=== PATIENT | male | born 1965 | race Caucasian/White ===

== ENCOUNTER 2020-04-22 23:06 | Observation (INO) | payer MEDICARE, OTHER ==
[~2020-04-22] VITALS: Ht 177.8 cm; Wt 85.0 kg
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
[2020-04-23] MEDS ORDERED: LACTATED RINGERS 1,000 ML IV ONE (00:15)
[2020-04-23 00:20] LABS: BASOPHILS % (AUTO) 1 % (0-10); EOSINOPHILS # (AUTO) 0.1 10^3/uL (0.0-0.3); EOSINOPHILS % (AUTO) 2 % (0-10); HEMATOCRIT 46 % (40-54); HEMOGLOBIN 15.3 g/dL (13.3-17.7); LYMPHOCYTES # (AUTO) 1.6 10^3/uL (1.0-4.0); LYMPHOCYTES % (AUTO) 31 % (12-44); MEAN CORPUSCULAR HEMOGLOBIN 30 pg (25-34); MEAN CORPUSCULAR HGB CONC 33 g/dL (32-36); MEAN CORPUSCULAR VOLUME 90 fL (80-99); MEAN PLATELET VOLUME 9.6 fL (9.0-12.2); MONOCYTES # (AUTO) 0.4 10^3/uL (0.0-1.0); MONOCYTES % (AUTO) 8 % (0-12); NEUTROPHILS # (AUTO) 2.9 10^3/uL (1.8-7.8); NEUTROPHILS % (AUTO) 58 % (42-75); PLATELET COUNT 209 10^3/uL (130-400); WHITE BLOOD COUNT 5.1 10^3/uL (4.3-11.0)
[2020-04-23 00:33] LABS: ALBUMIN 4.8 GM/DL (3.2-4.5); CHLORIDE 105 MMOL/L (98-107); SODIUM 139 MMOL/L (135-145)
[2020-04-23 00:34] LABS: CALCIUM 9.6 MG/DL (8.5-10.1)
[2020-04-23 00:35] LABS: GLUCOSE 97 MG/DL (70-105)
[2020-04-23 00:36] LABS: CARBON DIOXIDE 20 MMOL/L (21-32)
[2020-04-23 00:37] LABS: BILIRUBIN,TOTAL 0.3 MG/DL (0.1-1.0)
[2020-04-23 00:39] LABS: ALKALINE PHOSPHATASE 47 U/L (40-136); CREATININE SERUM 0.94 MG/DL (0.60-1.30); GFR ESTIMATED > 60
[2020-04-23 00:41] LABS: ACETAMINOPHEN < 10 UG/ML (10-30); BUN/CREATININE RATIO 17
[2020-04-23 00:42] LABS: ALANINE AMINOTRANSFERASE 14 U/L (0-55); SALICYLATE < 5.0 MG/DL (5.0-20.0)
[2020-04-23 00:49] LABS: VALPROIC ACID 41.1 UG/ML (50.0-100.0)
[2020-04-23 00:59] LABS: BILIRUBIN,URINE NEGATIVE (NEGATIVE); CLARITY,URINE CLEAR; COLOR,URINE YELLOW; GLUCOSE, URINE (UA) NEGATIVE (NEGATIVE); KETONES,URINE NEGATIVE (NEGATIVE); LEUKOCYTE ESTERASE ,URINE NEGATIVE (NEGATIVE); NITRITE,URINE NEGATIVE (NEGATIVE); PROTEIN,URINE NEGATIVE (NEGATIVE)
[2020-04-23 01:02] LABS: TSH (THYROID ANALYZER) 2.49 UIU/ML (0.35-4.94)
[2020-04-23 01:08] LABS: BACTERIA,URINE NEGATIVE /HPF; SQUAMOUS EPITHELIAL CELL,UR RARE /HPF
[2020-04-23 01:14] LABS: AMPHETAMINE SCREEN, URINE NEGATIVE (NEGATIVE); BARBITURATE SCREEN URINE NEGATIVE (NEGATIVE); BENZODIAZEPINES SCREEN URINE NEGATIVE (NEGATIVE); CANNABINOID SCREEN, URINE NEGATIVE (NEGATIVE); COCAINE SCREEN URINE NEGATIVE (NEGATIVE); METHADONE STAT NEGATIVE (NEGATIVE); METHAMPHETAMINE SCREEN URINE S NEGATIVE (NEGATIVE); OPIATE SCREEN URINE NEGATIVE (NEGATIVE); OXYCODONE STAT NEGATIVE (NEGATIVE); PROPOXYPHENE STAT NEGATIVE (NEGATIVE); TRICYCLIC ANTIDEPRESSANTS SCRE NEGATIVE (NEGATIVE)
--- NOTE | 2020-04-23 02:07 | NUR ---
PT LETA ([phone]) NOTIFIED OF PT ADMISSION TO [facility] AND PASSWORD "RIYA" ESTABLISHED. DISCUSSED WITH BEST TIME TO CALL IN MORNING WOULD BE AFTER 0900.
[2020-04-23] MEDS ORDERED: D5 1/2 NS W/KCL 20 MEQ/L 1,000 ML IV ONE (02:12)
[2020-04-23] MEDS ORDERED: SENNA W/DOCUSATE (SENOKOT S) TABLET PO PRN (02:30)
[2020-04-23] MEDS ORDERED: 1/2 NS IV SOLUTION 1,000 ML IV PRN (02:30)
[2020-04-23] MEDS ORDERED: D5 1/2 NS 1000 ML IV SOLUTION 1,000 ML IV PRN (02:30)
[2020-04-23] MEDS ORDERED: LORazepam INJ 2 MG/ML (ATIVAN) VIAL IM/IV PRN (02:30)
[2020-04-23] MEDS ORDERED: LORazepam INJ 2 MG/ML (ATIVAN) VIAL IV PRN (02:30)
[2020-04-23] MEDS ORDERED: ONDANSETRON 4 MG (ZOFRAN) ORAL DISSOLVE TAB SL PRN (02:30)
[2020-04-23] MEDS ORDERED: LORazepam 1 MG (ATIVAN) TAB PO PRN (02:30)
[2020-04-23] MEDS ORDERED: ANTACID SUSP 30 ML UDC (MYLANTA) PO PRN (02:30)
[2020-04-23] MEDS ORDERED: ONDANSETRON 4 MG/2 ML (SDV) Z0FRAN IV PRN (02:30)
[2020-04-23] MEDS: D5 1/2 NS W/KCL 20 MEQ/L 1,000 ML IV SCH ×4 (02:55→22:44)
[2020-04-23 04:04] LABS: BASOPHILS % (AUTO) 1 % (0-10); EOSINOPHILS # (AUTO) 0.1 10^3/uL (0.0-0.3); EOSINOPHILS % (AUTO) 3 % (0-10); HEMATOCRIT 41 % (40-54); HEMOGLOBIN 13.5 g/dL (13.3-17.7); LYMPHOCYTES # (AUTO) 1.6 10^3/uL (1.0-4.0); LYMPHOCYTES % (AUTO) 39 % (12-44); MEAN CORPUSCULAR HEMOGLOBIN 30 pg (25-34); MEAN CORPUSCULAR HGB CONC 33 g/dL (32-36); MEAN CORPUSCULAR VOLUME 90 fL (80-99); MEAN PLATELET VOLUME 9.3 fL (9.0-12.2); MONOCYTES # (AUTO) 0.3 10^3/uL (0.0-1.0); MONOCYTES % (AUTO) 7 % (0-12); NEUTROPHILS # (AUTO) 2.1 10^3/uL (1.8-7.8); NEUTROPHILS % (AUTO) 49 % (42-75); PLATELET COUNT 187 10^3/uL (130-400); WHITE BLOOD COUNT 4.2 10^3/uL (4.3-11.0)
[2020-04-23 04:15] LABS: ALBUMIN 3.8 GM/DL (3.2-4.5); CHLORIDE 107 MMOL/L (98-107); POTASSIUM 4.3 MMOL/L (3.6-5.0); SODIUM 140 MMOL/L (135-145)
[2020-04-23 04:16] LABS: CALCIUM 8.6 MG/DL (8.5-10.1)
[2020-04-23 04:17] LABS: GLUCOSE 101 MG/DL (70-105); TOTAL PROTEIN 6.1 GM/DL (6.4-8.2)
[2020-04-23 04:18] LABS: CARBON DIOXIDE 23 MMOL/L (21-32)
[2020-04-23 04:19] LABS: BILIRUBIN,TOTAL 0.2 MG/DL (0.1-1.0)
[2020-04-23 04:21] LABS: ALKALINE PHOSPHATASE 38 U/L (40-136); GFR ESTIMATED > 60
[2020-04-23 04:22] LABS: BUN/CREATININE RATIO 16
[2020-04-23 04:24] LABS: ALANINE AMINOTRANSFERASE 11 U/L (0-55)
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
[2020-04-23 07:26] VITALS: BP 123/76
[2020-04-23] MEDS: ENOXAPARIN 40 MG/0.4 ML (LOVENOX) SYR SQ SCH (09:00)
[2020-04-23] MEDS: THIAMINE INJECTION 100 MG, FOLIC ACID INJECTION 1 MG, MAGNESIUM SULFATE 2 GM, VITAMIN M... IV SCH ×5 (09:01)
[2020-04-23 12:00] VITALS: BP 121/69
--- NOTE | 2020-04-23 12:00 | NUR ---
phoned report called to deb andrew at this time.
--- NOTE | 2020-04-23 13:10 | NUR ---
patient and telesitter taken via wheelchair on room air to 406. this rn informed floor staff and deb andrew that patient arrived in room with telesitter. patient in bed with no complaints. iv fluids hooked up to pump by this rn.
--- NOTE | 2020-04-23 13:15 | NUR ---
Patient arrived to room 406 via wheelchair. Patient alert and oriented on room air. Voices no complaint or suicidal ideation at this time. Report previously received from Izabel MOREIRA.
[2020-04-23 13:20] VITALS: BP 134/83
--- NOTE | 2020-04-23 14:40 | NUR ---
Patients called at this time requesting an update on her but provided wrong password. Patient asleep at this time. Informed that once patient wakes up I will discuss updating her with his care and progress but can not provide any information until approval is given by the patient.
[2020-04-23 15:46] VITALS: BP 135/70
--- NOTE | 2020-04-23 15:55 | NUR ---
Patients wifes phone number not available in chart. Patient states he does not have number memorized. Will wait for to call back to update on patient information per patient approval
--- NOTE | 2020-04-23 16:10 | NUR ---
After reading previous notes was able to find wifes phone number [phone]. Contacted at this time and updated her on patient status. Allowed patient to speak with at this time as well while this RN stood at bedside.
[2020-04-23] MEDS ORDERED: lisINopril 5 MG (PRINIVIL) TABLET PO ONE (18:30)
[2020-04-23] MEDS ORDERED: DIVALPROEX 500 MG DELAYED RELEASE (DEPAKOTE) TAB PO SCH ×2 (18:30→21:27)
[2020-04-23] MEDS ORDERED: LITHIUM CARBONATE 300 MG TABLET PO ONE (18:30)
[2020-04-23 19:30] VITALS: BP 132/75
[2020-04-23] MEDS ORDERED: GABAPENTIN 600 MG (NEURONTIN) TAB PO SCH (21:00)
[2020-04-23] MEDS ORDERED: BACLOFEN 10 MG (LIORESAL) TAB PO SCH (21:00)
[2020-04-23] MEDS ORDERED: traZODone 100 MG (DESYREL) TAB PO SCH ×2 (21:00)
[2020-04-23] MEDS: GABAPENTIN 600 MG (NEURONTIN) TAB PO SCH (21:11)
[2020-04-23] MEDS: BACLOFEN 10 MG (LIORESAL) TAB PO SCH (21:11)
[2020-04-23] MEDS ORDERED: DIVALPROEX EXT RELEASE 500 MG (DEPAKOTE ER) TAB PO ONE (21:15)
[2020-04-24 00:37] VITALS: BP 145/75
[2020-04-24 04:00] VITALS: BP 113/66
--- NOTE | 2020-04-24 06:48 | NUR ---
Patient asked if IV fluids could be "slowed down" as he was having a hard time sleeping because he was urinating frequently. Dr Granados notified of patient request and gave order to D/C IV fluids.
[2020-04-24 08:00] VITALS: BP 119/72
[2020-04-24] MEDS: GABAPENTIN 600 MG (NEURONTIN) TAB PO SCH (08:38)
[2020-04-24] MEDS: BACLOFEN 10 MG (LIORESAL) TAB PO SCH (08:38)
[2020-04-24] MEDS: ENOXAPARIN 40 MG/0.4 ML (LOVENOX) SYR SQ SCH (08:39)
[2020-04-24] MEDS: THIAMINE INJECTION 100 MG, FOLIC ACID INJECTION 1 MG, MAGNESIUM SULFATE 2 GM, VITAMIN M... IV SCH ×5 (08:45)
[2020-04-24] MEDS ORDERED: DIVALPROEX 500 MG DELAYED RELEASE (DEPAKOTE) TAB PO SCH (09:00)
[2020-04-24] MEDS ORDERED: lisINopril 5 MG (PRINIVIL) TABLET PO SCH (09:00)
[2020-04-24] MEDS ORDERED: FLUoxetine HCL 20 MG (PROzac) CAP PO SCH ×2 (09:00)
[2020-04-24] MEDS ORDERED: ARIP15TA9 PO (09:42)
[2020-04-24] MEDS ORDERED: GBPN600T PO (09:42)
[2020-04-24] MEDS ORDERED: BUSP15TA60 PO (09:42)
[2020-04-24] MEDS ORDERED: DICL75TA2 PO (09:42)
[2020-04-24] MEDS ORDERED: LTH450TCR PO (09:42)
[2020-04-24] MEDS ORDERED: FLUO20CA46 PO (09:42)
[2020-04-24] MEDS ORDERED: LISI-552 PO (09:42)
[2020-04-24] MEDS ORDERED: TRAZ-227 PO (09:42)
[2020-04-24] MEDS ORDERED: DIVA-76 PO ×2 (09:42)
[2020-04-24] MEDS ORDERED: PRAZ5CAP2 PO (09:42)
[2020-04-24] MEDS ORDERED: BACL10TA PO (09:42)
[2020-04-24] MEDS ORDERED: ACET325T38 PO (09:45)
--- NOTE | 2020-04-24 10:06 | NUR ---
I SPOKE WITH THE PATIENT, CALLED DAISY NELSON, WENT THROUGH THE EXTERNAL MED HISTORY AND HIS MED LIST BROUGHT FROM HOME TO COMPLETE THIS MED REC. PT STATES THAT HE'S SUPPOSED TO BE TAKING LISINOPRIL 20MG DAILY BUT HASN'T BEEN ABLE TO GET THEM FILLED IN A WHILE AND HAS BEEN OUT AND NOT TAKING. BUSPIRONE 15MG HASN'T BEEN FILLED SINCE 01/07/20 BUT PT SAYS HE STILL HAS SOME FROM PREVIOUS FILLS. PRAZOSIN LAST FILLED 03/06/20 #30/30DS
--- NOTE | 2020-04-24 10:32 | NUR ---
CM/SS: Returned telephone call to spouse Lakshmi [phone] - she left a message on this workers voice mail - she is is able to give this worker some information about pt. She is open at this time to take pt to [place] to see his Psychiatrist and they have same day appointments on a walk in basis. This worker verifies the name of the mental health center in [place], [place]. Pt goes to [facility] [phone]. She also asked about other mental health services in the [facility]. This worker will provide information to pt on other services in the area.
--- NOTE | 2020-04-24 10:46 | NUR ---
CM/SS: Visited with pt as per plan for discharge - pt would like to go see his psychiatrist in [place], [place] as they have a walk in clinic and he can see them today. Plan: Pt will see his psychiatrist today in [place] at the [facility] - phone [phone] -urbana. Summary: Pt feels ok that he can see his psychiatrist in [place], [place] today. Pt asked about other mental health services in the area. This worker will provide pt with information on area mental health services. Pt is encouraged to take his medications as it did help him feel better. He acknowledges that stopping his medication was not a good idea. He notes that he has struggled with depression the last few weeks. Pt gives some life review and feels as if talking with psychiatric will be most helpful. He denies being suicidal at this time. Pt also reports that drinking was not a good plan. He is open to getting help at this time. This worker provided pt with information from various mental health centers in the area.
--- NOTE | 2020-04-24 10:52 | Discharge Summary ---
Discharge Summary Hospital Course Was the Problem List Reviewed?: Yes Problems/Dx: (1) Depression with suicidal ideation Status: Acute (2) Alcohol intoxication Status: Resolved Hospital Course Date of Admission: Apr 23, 2020 at 01:37 Admission Diagnosis: Depression with suicidal ideation Family Physician/Provider: Date of Discharge: 04/24/20 Discharge Diagnosis: Depression with suicidal ideation Hospital Course: Juan Manuel Beckwith is a 55-year-old male with depression who presented with suicidal ideation. He was also intoxicated from alcohol use. He reports that he was having suicidal ideations upon arrival but these resolved. He reports that he has been nonadherent with his psychiatric medications. He follows with a psychiatrist in [place], [place]. He would like to follow-up as an outpatient and plans to go in with his today to be seen. He was given information regarding [facility] services. Labs and Pending Lab Test: Home Meds Active Reported Tylenol (Acetaminophen) 325 Mg Tablet 650 Mg PO Q8H PRN TAKES 2 (325MG) TABLETS Aripiprazole 15 Mg Tablet 15 Mg PO 1900 [place] Carbonate ER ([place] Carbonate) 450 Mg Tab 450 Mg PO 1900 Prazosin HCl 5 Mg Capsule 5 Mg PO HS Trazodone HCl 100 Mg Tablet 200 Mg PO HS PRN TAKES 2 (100MG) TABLETS Buspirone HCl 15 Mg Tablet 15 Mg PO TID LAST FILLED 01/07/2020 #90 Baclofen 10 Mg Tablet 10 Mg PO TID Divalproex Sodium 500 Mg Tablet.dr 1,000 Mg PO HS TAKES 2 (500MG) TABLETS Divalproex Sodium 500 Mg Tablet.dr 500 Mg PO DAILY Gabapentin 600 Mg Tablet 600 Mg PO TID Fluoxetine HCl 20 Mg Capsule 60 Mg PO DAILY TAKES 3 (20MG) TABLETS Diclofenac Sodium 75 Mg Tablet.dr 75 Mg PO BID Assessment/Pt Instructions Take medications as prescribed. Follow up with your psychiatrist. You are being given info regarding [facility] outpatient services. Discharge Planning: <30 minutes discharge planning Discharge Instructions Discharge Diet: No Restrictions Activity as Tolerated: Yes Discharge Physical Examination Vital Signs Vital Signs Date Time Temp Pulse Resp B/P (MAP) Pulse Ox O2 Delivery O2 Flow Rate FiO2 04/24/20 08:00 36.1 59 16 119/72 (88) 97 Room Air General Appearance: No Apparent Distress, WD/WN HEENT: PERRL/EOMI, Pharynx Normal Respiratory: Lungs Clear, Normal Breath Sounds, No Respiratory Distress Cardiovascular: Regular Rate, Rhythm, No Edema, No Murmur Gastrointestinal: Normal Bowel Sounds, Non Tender, Soft Extremity: Normal Inspection, Non Tender, No Pedal Edema Skin: Normal Color, Warm/Dry Neurologic/Psychiatric: Alert, Oriented x3, No Motor/Sensory Deficits, Normal Mood/Affect Allergies: Coded Allergies: No Known Drug Allergies (Unverified , 04/23/20) Discharge Summary Date of Admission Apr 23, 2020 at 01:37 Date of Discharge Discharge Date: Apr 24, 2020 Discharge Time: 09:45 Admission Diagnosis Depression with suicidal ideation Discharge Diagnosis (1) Depression with suicidal ideation Status: Acute (2) Alcohol intoxication Status: Resolved GABO HEALY MD Apr 24, 2020 10:52
[2020-04-24 12:00] VITALS: BP 105/60
[2020-04-24 12:50] VITALS: BP 105/60
--- NOTE | 2020-04-24 13:00 | NUR ---
PATSY LAUREN demonstrates understanding of discharge instructions and accurately returns instructions upon questioning. Copy of Post-Discharge Instructions and Medication Discharge Instructions given to patient. PATSY LAUREN is able to manage continuing needs after discharge. Patients belongings returned to patient. Skin dry and intact; no breakdown noted. Patient discharged from [facility] on 04/24/20 at 1300. PATSY LAUREN left floor via wheelchair, accompanied by staff.
--- NOTE | 2020-04-24 14:51 | NUR ---
"RD ASSESSMENT PMHx: HTN; suicide attempts PT INTERACTION: Pt was awake and pleasant during nutrition consult for MST score. Pt states current appetite is alright. Note avg PO intake 67% x1d, per chart review. Pt states following a regular diet at home, and has no issues with chewing/swallowing food. Pt states no issues with nausea, vomiting, constipation, or diarrhea. Note last BM was 04/23, and pt currently on bowel regimen of senna PRN, per chart review. Pt states no recent wt changes. Note unable to determine recent wt hx, per chart review. Upon visual assessment, pt appears to adequately nourished with no visible signs of muscle/fat wasting, and a BMI of 26.9 (Overweight BMI for age). Given PO intake, wt hx, and visual assessment, pt does not meet criteria for malnutrition per ASPEN guidelines. Est. kcal needs: 3660-7675 kcal | 20-25 kcal/kg Est. Pro needs: 68-85 g Pro | 0.8-1.0 g Pro/kg PES STATEMENT: Inadequate oral intake (NI-2.1) related to loss of appetite, as evidenced by pt interview, and avg PO intake 66% x1d. INTERVENTION: Continue with current diet order of Regular diet. Pt may benefit from nutrition supplementation if PO intake declines. Will continue to follow and reassess as pt needs, intake, and status change. Yovani JENKINS, MS RD LD [phone] cell"
== END 2020-04-24 10:44 | disposition home or self-care (01) ==
LOC: ER 23:11 → CSD 23:12 → UNDOADMOB 04-23 01:37 → 4TH 04-23 13:00 → CSD 04-23 13:00 → UNDODISOB 04-24 13:00
PROVIDERS: ADMIT Family Medicine; ATTEND Internal Medicine
DX: F32.9 Major depressive disorder, single episode, unspecified (principal); R45.851 Suicidal ideations; F10.129 Alcohol abuse with intoxication, unspecified; G89.29 Other chronic pain; F41.9 Anxiety disorder, unspecified; F43.10 Post-traumatic stress disorder, unspecified; Z20.828 Contact with and (suspected) exposure to other viral communicable diseases
CPT/HCPCS: 80053; 80164; 80178; 80306; 81000; 84443; 85025; 93005; 93041; 99284; G0378 ×2; G0480 ×3; U0002; 36415; 80320; 80329; 87635

== ENCOUNTER 2022-05-24 22:46 | Emergency (ER) | payer MEDICARE ==
[~2022-05-24 22:46] MED LIST: ACET325T38 PO; ARIP15TA20 PO; BACL10TA PO; BUSP15TA60 PO; DICL75TA2 PO; DIVA-76 PO; FLUO20CA48 PO; GBPN600T PO; LISI20TA26 PO; LTH450TCR PO; PRAZ5CAP2 PO; TRAZ-227 PO
[2022-05-24] MEDS ORDERED: ASPIRIN 81 MG CHEW (CHILDREN'S ASA) PO ONE (23:00)
[2022-05-24 23:09] LABS: BASOPHILS # (AUTO) 0.1 10^3/uL (0.0-0.1); BASOPHILS % (AUTO) 1 % (0-10); EOSINOPHILS # (AUTO) 0.2 10^3/uL (0.0-0.3); EOSINOPHILS % (AUTO) 2 % (0-10); HEMATOCRIT 40 % (40-54); HEMOGLOBIN 13.4 g/dL (13.3-17.7); LYMPHOCYTES % (AUTO) 30 % (12-44); MEAN CORPUSCULAR HEMOGLOBIN 30 pg (25-34); MEAN CORPUSCULAR HGB CONC 34 g/dL (32-36); MEAN CORPUSCULAR VOLUME 89 fL (80-99); MONOCYTES # (AUTO) 0.6 10^3/uL (0.0-1.0); MONOCYTES % (AUTO) 9 % (0-12); NEUTROPHILS # (AUTO) 3.9 10^3/uL (1.8-7.8); NEUTROPHILS % (AUTO) 58 % (42-75); PLATELET COUNT 186 10^3/uL (130-400); WHITE BLOOD COUNT 6.7 10^3/uL (4.3-11.0)
[2022-05-24] MEDS: NITROGLYCERIN 0.4 MG SL TABS BTL 25'S SL PRN ×2 (23:16→23:26)
[2022-05-24 23:29] LABS: CHLORIDE 105 MMOL/L (98-107); POTASSIUM 4.7 MMOL/L (3.6-5.0); SODIUM 139 MMOL/L (135-145)
[2022-05-24 23:30] LABS: AMYLASE 90 U/L (25-125)
[2022-05-24 23:31] LABS: GLUCOSE 88 MG/DL (70-105); TOTAL PROTEIN 6.5 GM/DL (6.4-8.2)
[2022-05-24 23:32] LABS: CARBON DIOXIDE 24 MMOL/L (21-32)
[2022-05-24 23:33] LABS: BILIRUBIN,TOTAL 0.4 MG/DL (0.1-1.0)
[2022-05-24 23:34] LABS: FIBRIN DEGRADATION PRODUCTS 0.95 UG/ML (0.00-0.49); PROTHROMBIN TIME PATIENT 13.9 SEC (12.2-14.7)
[2022-05-24 23:35] LABS: ALKALINE PHOSPHATASE 40 U/L (40-136); CREATININE SERUM 0.99 MG/DL (0.60-1.30); GFR ESTIMATED 89
[2022-05-24 23:36] LABS: BUN/CREATININE RATIO 26
[2022-05-24 23:38] LABS: ALANINE AMINOTRANSFERASE 19 U/L (0-55); MAGNESIUM 2.2 MG/DL (1.6-2.4)
[2022-05-24 23:39] LABS: CREATINE KINASE 80 U/L (30-200); LIPASE 66 U/L (8-78)
[2022-05-24 23:45] LABS: CREATINE KINASE MB 2.1 NG/ML (<6.6)
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
[2022-05-25] MEDS ORDERED: IOHEXOL 350 MG/ML 100 ML (OMNIPAQUE 350) VIAL IV ONE (00:45)
[2022-05-25] MEDS ORDERED: HOLD METFORMIN - RECEIVED CONTRAST 20 ML VIAL IV SCH (00:45)
[2022-05-25] MEDS ORDERED: NS 100 ML (IVPB) BAG IV ONE (00:45)
[2022-05-25] MEDS ORDERED: METO-352 PO (02:49)
[2022-05-25] MEDS ORDERED: meTOproloL SUCCINATE 50 MG (TOPROL XL) TAB PO SCH (03:00)
[2022-05-25 03:06] VITALS: BP 154/92
--- NOTE | 2022-05-25 06:41 | Diagnostic Imaging Report ---
INDICATION: Chest pain with elevated D-dimer. TECHNIQUE: Contiguous axial images were obtained through the chest during the intravenous administration of contrast. MIP reconstructions were created and evaluated. COMPARISON: None. DISCUSSION: No pulmonary embolus identified. Thoracic aorta is normal in caliber and configuration. Pulmonary arteries are not dilated. Normal heart size. No pleural or pericardial fluid. No consolidation or pulmonary lesion. No pathologic-appearing adenopathy. Pneumobilia is noted of uncertain etiology or clinical significance. The gallbladder is contracted. The upper abdomen is otherwise unremarkable. No acute osseous abnormality identified. IMPRESSION: 1. No pulmonary embolus identified. No other acute abnormality within the chest. 2. Pneumobilia. 3. Agree with preliminary report. Dictated by: Dictated on workstation # [id number]
--- NOTE | 2022-05-25 07:00 | Diagnostic Imaging Report ---
INDICATION: Chest pain. COMPARISON: None. DISCUSSION: Single portable upright view of the chest was obtained. Epidural stimulator lead is noted within the mid thoracic spine. Cervical spine fusion is noted. Normal heart size. No consolidation, pleural fluid, or pneumothorax. No acute osseous abnormality. IMPRESSION: 1. Negative chest. 2. Agree with preliminary emergency department interpretation. Dictated by: Dictated on workstation # [id number]
== END 2022-05-25 03:07 | disposition home or self-care (01) ==
LOC: EDUNIT# 22:46 → ER 22:48
DX: I71.21 Aneurysm of the ascending aorta, without rupture (principal); I10 Essential (primary) hypertension; Z87.891 Personal history of nicotine dependence
CPT/HCPCS: 36415; 71045; 71275; 80053; 82150; 82550; 82553; 83690; 83735; 83874; 83880; 84484; 85025; 85379; 85610; 85730; 93005; 93041

== ENCOUNTER → 2022-06-07 | Outpatient (CLI) | payer MEDICARE ==
[~2022-06-07] MED LIST changes: +METO-352 PO
== END ==
LOC: CARD 08:57
PROVIDERS: ATTEND Internal Medicine Cardiovascular Disease
DX: I08.0 Rheumatic disorders of both mitral and aortic valves (principal); I10 Essential (primary) hypertension; I25.10 Atherosclerotic heart disease of native coronary artery without angina pectoris
CPT/HCPCS: 93306

== ENCOUNTER 2022-08-13 14:23 | Emergency (ER) | payer MEDICARE ==
[~2022-08-13] VITALS: Ht 177 cm; Wt 82.0 kg
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
[2022-08-13] MEDS ORDERED: TETANUS,DIPTH,PERTUSS P/F (BOOSTRIX) 0.5 ML VIAL IM ONE (15:30)
[2022-08-13] MEDS: IBUPROFEN 600 MG (MOTRIN) TAB PO ONE (15:35)
[2022-08-13 15:39] VITALS: BP 135/84
== END 2022-08-13 15:39 | disposition home or self-care (01) ==
LOC: EDUNIT# 14:23 → ER 14:25
DX: S09.90XA Unspecified injury of head, initial encounter (principal); S01.81XA Laceration without foreign body of other part of head, initial encounter; F17.210 Nicotine dependence, cigarettes, uncomplicated; Z23 Encounter for immunization; W01.0XXA Fall on same level from slipping, tripping and stumbling without subsequent striking against object, initial encounter; Y92.59 Other trade areas as the place of occurrence of the external cause
CPT/HCPCS: 90715

== ENCOUNTER 2022-09-24 02:16 | Emergency (ER) | payer MEDICARE ==
[~2022-09-24] VITALS: Ht 177.8 cm; Wt 81.6 kg
[2022-09-24 02:17] VITALS: BP 143/77
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
[2022-09-24 02:45] LABS: BASOPHILS % (AUTO) 1 % (0-10); EOSINOPHILS # (AUTO) 0.1 10^3/uL (0.0-0.3); EOSINOPHILS % (AUTO) 2 % (0-10); HEMATOCRIT 43 % (40-54); HEMOGLOBIN 14.1 g/dL (13.3-17.7); LYMPHOCYTES # (AUTO) 1.6 10^3/uL (1.0-4.0); LYMPHOCYTES % (AUTO) 33 % (12-44); MEAN CORPUSCULAR HEMOGLOBIN 30 pg (25-34); MEAN CORPUSCULAR HGB CONC 33 g/dL (32-36); MEAN CORPUSCULAR VOLUME 93 fL (80-99); MEAN PLATELET VOLUME 9.1 fL (9.0-12.2); MONOCYTES # (AUTO) 0.4 10^3/uL (0.0-1.0); MONOCYTES % (AUTO) 7 % (0-12); NEUTROPHILS # (AUTO) 2.8 10^3/uL (1.8-7.8); NEUTROPHILS % (AUTO) 56 % (42-75); PLATELET COUNT 186 10^3/uL (130-400)
[2022-09-24 02:46] LABS: BILIRUBIN,URINE NEGATIVE (NEGATIVE); CLARITY,URINE CLEAR; COLOR,URINE YELLOW; GLUCOSE, URINE (UA) NEGATIVE (NEGATIVE); KETONES,URINE NEGATIVE (NEGATIVE); LEUKOCYTE ESTERASE ,URINE NEGATIVE (NEGATIVE); NITRITE,URINE NEGATIVE (NEGATIVE); PH,URINE 5.5 (5-9); PROTEIN,URINE NEGATIVE (NEGATIVE)
[2022-09-24 02:56] LABS: ALBUMIN 4.1 GM/DL (3.2-4.5); CHLORIDE 108 MMOL/L (98-107); POTASSIUM 4.1 MMOL/L (3.6-5.0); SODIUM 140 MMOL/L (135-145)
[2022-09-24 02:57] LABS: CALCIUM 9.2 MG/DL (8.5-10.1)
[2022-09-24 02:59] LABS: GLUCOSE 89 MG/DL (70-105); TOTAL PROTEIN 6.7 GM/DL (6.4-8.2)
[2022-09-24 02:59] LABS: AMPHETAMINE SCREEN, URINE NEGATIVE (NEGATIVE); BACTERIA,URINE NEGATIVE /HPF; BARBITURATE SCREEN URINE NEGATIVE (NEGATIVE); BENZODIAZEPINES SCREEN URINE NEGATIVE (NEGATIVE); CANNABINOID SCREEN, URINE NEGATIVE (NEGATIVE); COCAINE SCREEN URINE NEGATIVE (NEGATIVE); METHADONE STAT NEGATIVE (NEGATIVE); OPIATE SCREEN URINE NEGATIVE (NEGATIVE); OXYCODONE STAT NEGATIVE (NEGATIVE); PROPOXYPHENE STAT NEGATIVE (NEGATIVE); TRICYCLIC ANTIDEPRESSANTS SCRE NEGATIVE (NEGATIVE)
[2022-09-24 03:00] LABS: BILIRUBIN,TOTAL 0.4 MG/DL (0.1-1.0); CARBON DIOXIDE 21 MMOL/L (21-32)
[2022-09-24 03:02] LABS: ALKALINE PHOSPHATASE 46 U/L (40-136); CREATININE SERUM 0.88 MG/DL (0.60-1.30); GFR ESTIMATED 101
[2022-09-24 03:04] LABS: ACETAMINOPHEN < 10 UG/ML (10-30); BUN/CREATININE RATIO 15
[2022-09-24 03:05] LABS: SALICYLATE < 5.0 MG/DL (5.0-20.0)
[2022-09-24 03:06] LABS: ALANINE AMINOTRANSFERASE 15 U/L (0-55)
[2022-09-24] MEDS ORDERED: MELOXICAM 7.5 MG (MOBIC) TABLET PO ONE (07:15)
[2022-09-24] MEDS ORDERED: DIVALPROEX 250 MG DELAYED RELEASE (DEPAKOTE) TAB PO SCH (09:00)
== END 2022-09-24 10:13 | disposition home or self-care (01) ==
LOC: EDUNIT# 02:16 → ER 02:17
DX: R45.851 Suicidal ideations (principal); Z87.891 Personal history of nicotine dependence
CPT/HCPCS: 80053; 80306; 81000; 85025; 93005; G0480 ×3; 36415; 80320; 80329

== ENCOUNTER 2022-10-10 01:07 | Emergency (ER) | payer MEDICARE ==
[~2022-10-10] VITALS: Ht 177.8 cm; Wt 86.2 kg
[2022-10-10 02:22] LABS: AMPHETAMINE SCREEN, URINE NEGATIVE (NEGATIVE); BARBITURATE SCREEN URINE NEGATIVE (NEGATIVE); BENZODIAZEPINES SCREEN URINE NEGATIVE (NEGATIVE); CANNABINOID SCREEN, URINE NEGATIVE (NEGATIVE); COCAINE SCREEN URINE NEGATIVE (NEGATIVE); OPIATE SCREEN URINE NEGATIVE (NEGATIVE); TRICYCLIC ANTIDEPRESSANTS SCRE NEGATIVE (NEGATIVE)
[2022-10-10 02:23] LABS: BACTERIA,URINE NEGATIVE /HPF; BILIRUBIN,URINE NEGATIVE (NEGATIVE); CLARITY,URINE CLEAR; COLOR,URINE YELLOW; GLUCOSE, URINE (UA) NEGATIVE (NEGATIVE); KETONES,URINE NEGATIVE (NEGATIVE); LEUKOCYTE ESTERASE ,URINE NEGATIVE (NEGATIVE); METHADONE STAT NEGATIVE (NEGATIVE); NITRITE,URINE NEGATIVE (NEGATIVE); OXYCODONE STAT NEGATIVE (NEGATIVE); PH,URINE 6.5 (5-9); PROPOXYPHENE STAT NEGATIVE (NEGATIVE); PROTEIN,URINE NEGATIVE (NEGATIVE); SQUAMOUS EPITHELIAL CELL,UR RARE /HPF
[2022-10-10 02:24] LABS: HEMATOCRIT 42 % (40-54); HEMOGLOBIN 14.1 g/dL (13.3-17.7); MEAN CORPUSCULAR HEMOGLOBIN 31 pg (25-34); MEAN CORPUSCULAR HGB CONC 34 g/dL (32-36); MEAN CORPUSCULAR VOLUME 91 fL (80-99); MEAN PLATELET VOLUME 9.3 fL (9.0-12.2); PLATELET COUNT 177 10^3/uL (130-400); WHITE BLOOD COUNT 5.6 10^3/uL (4.3-11.0)
[2022-10-10 02:25] LABS: BASOPHILS # (AUTO) 0.1 10^3/uL (0.0-0.1); BASOPHILS % (AUTO) 1 % (0-10); EOSINOPHILS # (AUTO) 0.2 10^3/uL (0.0-0.3); EOSINOPHILS % (AUTO) 3 % (0-10); LYMPHOCYTES # (AUTO) 1.7 X 10^3 (1.0-4.0); LYMPHOCYTES % (AUTO) 30 % (12-44); MONOCYTES # (AUTO) 0.4 X 10^3 (0.0-1.0); MONOCYTES % (AUTO) 8 % (0-12); NEUTROPHILS # (AUTO) 3.2 X 10^3 (1.8-7.8); NEUTROPHILS % (AUTO) 58 % (42-75)
[2022-10-10 02:47] LABS: CHLORIDE 106 MMOL/L (98-107); POTASSIUM 4.1 MMOL/L (3.6-5.0); SODIUM 140 MMOL/L (135-145)
[2022-10-10 02:48] LABS: ACETAMINOPHEN < 10 UG/ML (10-30); ALANINE AMINOTRANSFERASE 18 U/L (0-55); ALBUMIN 4.2 GM/DL (3.2-4.5); ALKALINE PHOSPHATASE 39 U/L (40-136); BILIRUBIN,TOTAL 0.4 MG/DL (0.1-1.0); BUN/CREATININE RATIO 20; CALCIUM 9.6 MG/DL (8.5-10.1); CARBON DIOXIDE 21 MMOL/L (21-32); CREATININE SERUM 0.89 MG/DL (0.60-1.30); GFR ESTIMATED 101; GLUCOSE 103 MG/DL (70-105); SALICYLATE < 5.0 MG/DL (5.0-20.0); TOTAL PROTEIN 6.8 GM/DL (6.4-8.2)
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
[2022-10-10 03:03] LABS: TSH (THYROID ANALYZER) 6.37 UIU/ML (0.35-4.94)
[2022-10-10 13:57] VITALS: BP 125/78
== END 2022-10-10 15:08 | disposition short-term general hospital (02) ==
LOC: EDUNIT# 01:07 → ER 01:08
DX: F32.A Depression, unspecified (principal); Z87.891 Personal history of nicotine dependence; Z20.822 Contact with and (suspected) exposure to COVID-19
CPT/HCPCS: 80053; 80164; 80306; 81000; 84439; 84443; 85025; 87636; 93005; 99284; G0480 ×3; 36415; 80320; 80329